=== PATIENT | male | born 1970 | race Caucasian/White ===

== ENCOUNTER → 2016-11-17 | Outpatient (CLI) | payer MEDICARE | LOC: RAD 16:20 | DX: M54.2 Cervicalgia (principal); M54.9 Dorsalgia, unspecified; M25.551 Pain in right hip; R05 Cough; R91.8 Other nonspecific abnormal finding of lung field; M47.814 Spondylosis without myelopathy or radiculopathy, thoracic region; M47.816 Spondylosis without myelopathy or radiculopathy, lumbar region | CPT/HCPCS: 71020; 72050; 72072; 72110; 73502 ==

== ENCOUNTER 2020-09-28 10:53 | Emergency (ER) | payer MEDICARE, OTHER ==
[~2020-09-28 10:53] MED LIST: IBUPROFEN600 MG PO; PERCOCET 5/325 T1 EA PO; VIBRAMYCIN100 MG PO; ZOFRAN4 MG PO
[2020-09-28 12:19] LABS: HEMOGLOBIN 16.1 gm/dl (14.0-17.5); RED BLOOD COUNT 5.16 M/UL (4.20-5.50); WHITE BLOOD COUNT 7.9 K/UL (4.5-11.0)
[2020-09-28] MEDS ORDERED: DILANTIN 100 M100 MG PO (15:20)
[2020-09-28] MEDS ORDERED: LISINOPRIL10 MG PO (15:20)
[2020-09-28] MEDS ORDERED: CATAPRES 0.1MG0.1 MG PO (15:20)
[2020-09-28] MEDS ORDERED: DOXYCYCLINE HY100 MG PO (15:20)
[2020-10-02 06:10] LABS: CHLAMYDIA TRACHOMATIS, NAA Negative (Negative); NEISSERIA GONORRHOEAE, NAA Negative (Negative)
== END 2020-09-28 17:15 | disposition home or self-care (01) ==
LOC: ER1 10:53
PROVIDERS: Physician Assistant; Physician Assistant Medical
DX: N50.811 Right testicular pain (principal); N39.0 Urinary tract infection, site not specified; I10 Essential (primary) hypertension; G40.909 Epilepsy, unspecified, not intractable, without status epilepticus; N43.3 Hydrocele, unspecified; K82.8 Other specified diseases of gallbladder; K76.0 Fatty (change of) liver, not elsewhere classified; F17.220 Nicotine dependence, chewing tobacco, uncomplicated; Z86.19 Personal history of other infectious and parasitic diseases; Z79.899 Other long term (current) drug therapy; Z91.14 Patient's other noncompliance with medication regimen
CPT/HCPCS: 76870; 80053; 81001; 85025; 85610; 87086; 96365; 99284; J0696; J7030